=== PATIENT | male | born 1960 | race Caucasian/White ===

== ENCOUNTER 2022-08-01 06:41 | Observation (INO) ==
[2022-08-01] MEDS ORDERED: LIDOCAINE 1% LOCAL 20 ML VIAL ONE (07:07)
--- NOTE | 2022-08-01 08:10 | Pre Anesthesia Assessment ---
Date of Service August 01, 2022 Pre Sedation Assessment Vital Signs Temp Pulse Resp BP Pulse Ox O2 Del Method 08/01/22 07:03 98.1 F 86 16 199/99 H 95 Room Air Cardiovascular RRR, no murmur, no edema Respiratory normal respiratory effort, lungs clear to auscultation Pre-Sedation Airway Assessment Smoking Status: Never smoker Hx Sleep Apnea: No Short, Thick Neck: No Thyromental Distance: > or= 3.5 Finger Breadths Oral Cavity: + WNL Mallampati Class: II ASA: ASA3 NPO Status Date of Last Intake of Fluids: 08/01/22 Time of Last Intake of Fluids: 05:00 Last Oral Intake of Fluids Comment: with pills Date of Last Intake of Solid Food: 07/31/22 Time of Last Intake of Solid Foods: 21:00 Procedure Planning Contraindications for Sedation: none Current Medications Reviewed: Yes Notes The planned sedation has been discussed with the patient. Informed Consent was obtained. I have identified the patient, determined the appropriateness of sedation and have assessed the patient immediately prior to the procedure. All medicine(s) and interventions are by my order.
--- NOTE | 2022-08-01 08:10 | History & Physical Bridge Note ---
Date of Service August 01, 2022 History & Physical Bridge Note I have examined the patient, reviewed the History & Physical and in the interval since the performance of the History & Physical I have noted the following changes of clinical significance: no changes noted
[2022-08-01] MEDS ORDERED: MIDAZOLAM HCL 1 MG/ML 2ML VIAL ONE ×3 (08:20→09:09)
[2022-08-01] MEDS ORDERED: HEPARIN (PORCINE) 1000 UNIT/ML 10 ML (CATH LAB USE ONLY) ONE ×2 (08:20→09:44)
[2022-08-01] MEDS ORDERED: fentaNYL citrate PF 100 MCG/2 ML VIAL ONE ×2 (08:21→09:07)
[2022-08-01] MEDS ORDERED: niCARdipine HCL INJ 2.5 MG/ML 10 ML AMP ONE (08:21)
[2022-08-01] MEDS ORDERED: NITROGLYCERIN/D5W 100MCG/ML 20ML SYR ONE (08:22)
[2022-08-01] MEDS ORDERED: PRASugrel TAB 10 MG TAB PO ONE (10:41)
--- NOTE | 2022-08-01 10:59 | Post Anesthesia Assessment ---
Date of Service August 01, 2022 Post Sedation Assessment Vital Signs Temp Pulse Resp BP Pulse Ox O2 Del Method 08/01/22 07:03 98.1 F 86 16 199/99 H 95 Room Air Recovery Score Activity: Moves 4 extremities Respiration: Deep Breath/Cough Circulation: +/-20% PreAnes Value Consciousness: Fully Awake Oxygen Saturation: O2 needed for >90% Discharge Sedation Level of Care: Fast Track Phase II Post Sedation Plan On clinical assessment, the patient appears to have tolerated the sedation without complications. Patient is recovering as anticipated. Patient will continue to be monitored by nursing and may be discharged when sedation discharge criteria are met per below protocol. Upon Completions of procedure up to 15 minutes continue every 5 minute vital signs and the P.A.R. score; then discharge to a Phase I or Fast Track to Phase II per the following guidelines: * Discharge Patient to appropriate Phase II area if PAR is 8 or greater or return to pre- procedure baseline. The post - procedure orders will be as directed. * If PAR score is less than 8 or not return to pre-procedure baseline then patient will follow Phase I monitoring till PAR is reached for Phase II. The Phase I may be done in procedure room or may call to secure a Phase I area. * If naloxone or flumazenil are used for reversal, hold in Phase I for continued monitoring from when last reversal dose was given for a minimum of 60 minutes or longer pending the nurse and/or physician discretion of patient condition before discharge to Phase II. Please call the Sedation Physician to re-evaluate and complete post-note for discharge to Phase II area. Do NOT discharge from procedure sedation or Phase 1 until post- sedation evaluation note is complete by procedure /sedation MD Sedation Discharge Instructions to be given to the patient at discharge to home.
--- NOTE | 2022-08-01 11:01 | Cardiac Catheterization ---
[facility] Data: Farm [employer] Cardiac Status Clinical evaluation leading to the procedure CAD Presenation: Positive Stress Test Anginal Classification: CCS III Diagnostic Physicians Name: Lenard Aguilar MD Closure Device Recommendations: PCI without planned CABG Cardiac Cath Procedure Full Procedure Date August 01, 2022 Pre-Procedure Diagnosis Pre-Procedure Diagnosis: Positive Stress Test AUC Score AUC Score: 8 Post-Procedure Diagnosis Post-Procedure Diagnosis: Severe CAD and Successful PCI Procedure(s) Performed Procedure(s) Performed: Coronary Angiography, Left Heart Cath and Drug Eluting Stent Brush Loader And Handle Attacher Lenard Aguilar MD Professor Of Special Education(s) [place] Estimated Blood Loss Estimated Blood Loss: 20 Medication(s) Medication(s): Fentanyl, Nicardipine, Nitroglycerin and Versed Medication(s): Prasugrel Summary of Findings Indication: High risk/abnormal stress test, accelerating angina Access: 6 Fr right radial artery (tortuosity in radial artery in the upper forearm navigated with V18 wire and 4 Fr catheter). Catheters: JR4, JL 3.5, EBU 3.5 guide, pigtail Findings: LM -normal caliber, no significant disease LAD -medium caliber, mildly calcified, 90% proximal stenosis at takeoff of large D1, mid segment with luminal regularities, distal vessel wraps around apex. D1 with ostial 95% stenosis, 30% mid segment stenosis. Circumflex -medium caliber, high OM1 large caliber vessel with 20 to 30% mid segment disease. Small AV groove circumflex without disease. RCA -dominant, large caliber, mild diffuse mid segment disease up to 30%, distal vessel and RPDA, PLB without significant disease. LVEDP -21 -- PCI -- Antithrombotic therapy: Heparin, prasugrel Procedure: Left main cannulated with EBU 3.5 guide Pre-procedure flow ALEX 2-3 BMW wire passed across ostial diagonal lesion into distal vessel [place] wire placed into distal LAD Mid LAD lesion predilated with 2.5 compliant balloon Ostial/proximal diagonal lesion predilated with 2.5 compliant balloon [place] IVUS catheter placed into mid LAD. Pullback revealed diffuse disease with circumferential calcium extending back across takeoff of diagonal. Minimal disease in left main. IVUS pullback and diagonal revealed mid segment moderate disease with severe ostial disease extending into LAD Ostial/proximal diagonal stented with 2.75 x 12 mm Xience BRYANNA with proximal edge of stent protruding into LAD Kissing balloon inflation with 2.75 stent balloon in diagonal, 2.5 balloon in LAD Proximal to mid LAD stented with 3.0 x 18 Xience drug-eluting stent Stent post-dilated with 3.5 noncompliant balloon Diagonal rewired with whisper wire. Attempt made to further dilate stent struts with 2.0 and 1.5 balloon but unable to pass across stent struts. IC vasodilators administered for spasm Post procedure ALEX 3 flow, stents well expanded with minimal residual stenosis and no apparent cardiac complications. Arterial Closure: TR band Summary: 1. Severe single vessel coronary artery disease -90% proximal LAD at bifurcation of large D1. D1 with 95% ostial stenosis. 2. Borderline intracardiac filling pressure 3. 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 Any exceptions are noted below. [facility] Card Cath Procedure Codes Cardiac Catheterization Procedure 1: Cardiovascular Cath Procedures: 34478 Coronaries and LHC (+/-LV) Therapeutic Services & Ancillary Procedure 1: Cardiovascular Tx and Anc Procedures: 28057 IV Ultrasound (Coronary or Graft) Procedure 2: Cardiovascular Tx and Anc Procedures: 17740 IV Ultrasound Ea addl vessel Moderate Sedation Procedure 1: Sedation/Anesthesia: 28343 Mod Sedation by the same physician;Init15 Min Child Age 5 & Up Procedure 2: Sedation/Anesthesia: 41245 Mod Sedation by the same physician; Ea [id number] Minutes Stenting Procedure 1: Cardiovascular Stent Procedures: 28470 Perc transcatheter placement of intracoronary stent(s), with ang PG Care Time/CCT Total # of Minutes Spent Total Time Spent with Patient: Total time spent is greater than 50% in coordination of care (as documented) at patient's floor/unit and/or counseling patient:
--- NOTE | 2022-08-01 13:18 | Electrocardiogram Report ---
Test Reason : Blood Pressure : / mmHG Vent. Rate : 061 BPM Atrial Rate : 061 BPM P-R Int : 238 ms QRS Dur : 086 ms QT Int : 422 ms P-R-T Axes : 045 -15 026 degrees QTc Int : 424 ms Sinus rhythm with 1st degree A-V block Poor R wave progression, consider anterior [place] vs. lead placement vs. LVH Abnormal ECG No previous ECGs available Confirmed by Gage Leyva ([id number]) on 08/01/2022 1:18:12 PM Referred By: Jeff Spear Confirmed By:Gage Leyva
--- NOTE | 2022-08-01 15:48 | Electrocardiogram Report ---
Test Reason : Blood Pressure : / mmHG Vent. Rate : 065 BPM Atrial Rate : 065 BPM P-R Int : 228 ms QRS Dur : 084 ms QT Int : 380 ms P-R-T Axes : 050 -21 018 degrees QTc Int : 395 ms Sinus rhythm with 1st degree A-V block Poor R wave progression, consider anterior [place] vs. lead placement vs. LVH Abnormal ECG When compared with ECG of 01-AUG-2022 11:07, No significant change was found Confirmed by Gage Leyva ([id number]) on 08/01/2022 3:48:11 PM Referred By: Jeff Spear Confirmed By:Gage Leyva
--- NOTE | 2022-08-01 15:53 | Electrocardiogram Report ---
Test Reason : Blood Pressure : / mmHG Vent. Rate : 056 BPM Atrial Rate : 056 BPM P-R Int : 236 ms QRS Dur : 072 ms QT Int : 410 ms P-R-T Axes : 044 -05 047 degrees QTc Int : 395 ms Sinus bradycardia with 1st degree A-V block Anterior infarct (cited on or before 01-AUG-2022) Abnormal ECG When compared with ECG of 01-AUG-2022 13:46, (unconfirmed) No significant change was found Confirmed by Gage Leyva ([id number]) on 08/01/2022 3:52:45 PM Referred By: Jeff Spear Confirmed By:Gage Leyva
[2022-08-01] MEDS ORDERED: ONDANSETRON INJ 2 MG/ML 2 ML VIAL IV PRN (18:09)
[2022-08-01] MEDS ORDERED: ACETAMINOPHEN 325 MG TAB PO PRN (18:09)
[2022-08-01] MEDS ORDERED: NITROGLYCERIN SL 0.4 MG/TAB TAB SL PRN (18:09)
[2022-08-02] MEDS ORDERED: SIMVASTATIN 40 MG TAB PO SCH (09:00)
[2022-08-02] MEDS ORDERED: PRASugrel TAB 10 MG TAB PO SCH (09:00)
[2022-08-02] MEDS ORDERED: amLODIPine BESYLATE 5 MG TAB PO SCH (09:00)
[2022-08-02] MEDS ORDERED: ASPIRIN 81 MG ECTAB PO SCH (09:00)
[2022-08-02] MEDS ORDERED: hydroCHLOROthiazide 25 MG TAB PO SCH (09:00)
--- NOTE | 2022-08-03 13:57 | Discharge Summary ---
Date of Service August 03, 2022 Admission HPI Per Admitting Provider 62-year-old man with a history of hypertension, dyslipidemia who was previously seen by Dr. Spear for accelerating angina. Exercise stress echo was abnormal. Presented for further evaluation with cardiac catheterization. Specialty Data Cardiology 1. Severe single vessel coronary artery disease -90% proximal LAD at bifurcation of large D1. D1 with 95% ostial stenosis. 2. Borderline intracardiac filling pressure 3. Successful PCI of proximal to mid LAD/D1 bifurcation with 2 drug-eluting stents (TAP 3.0 x 18 Xience LAD; 2.75 x 12 Xience diagonal) Discharge Data Procedures Performed Operation Date: 08/01/22 08:00 Actual Procedures p Cineradiography w/Routine Exam - Sam Aguilar MD p Cath, Left with Cors and Vent - Sam Aguilar MD s Drug Eluting Stent SGl Vessel - Sam Aguilar MD s IVUS Coronary Single Vessel - Sam Aguilar MD Hospital Course (1) CAD (coronary artery disease): Plan Patient underwent cardiac catheterization via right radial artery and was found to have a severe 90+% stenosis involving his proximal LAD and bifurcation with large D1. He underwent bifurcation stenting of LAD/D1 with 2 drug-eluting stents. Procedure was uncomplicated. Post procedure patient had orthostatic symptoms and was admitted for overnight observation. Overnight patient had no chest pain. He remained hemodynamically and electrically stable. On postprocedure day 1 was feeling well. No evidence of access site complications. Discharged on DAPT with aspirin, prasugrel. His prior metoprolol was discont inued. Continued on remainder of prior anti-hypertensives and statin. Follow-up with cardiology in 1 week. Discharge Instructions Home Medications amlodipine 10 mg tablet 10 mg PO DAILY 07/14/22 [History Confirmed 07/15/22] aspirin 81 mg tablet,delayed release (Adult Aspirin Regimen) 81 mg PO DAILY 07/14/22 [History Confirmed 07/15/22] clobetasol 0.05 % topical cream 1 applic topical DAILY 07/14/22 [History Confirmed 07/15/22] hydrochlorothiazide 25 mg tablet 25 mg PO DAILY 07/14/22 [History Confirmed 07/15/22] simvastatin 40 mg tablet 40 mg PO DAILY 07/14/22 [History Confirmed 07/15/22] nitroglycerin 0.4 mg sublingual tablet (Nitrostat) 0.4 mg sublingual PRN PRN chest pain #30 tabs 08/02/22 [Rx] prasugrel 10 mg tablet 10 mg PO QAM #30 tabs 08/02/22 [Rx] Coding Level of Care Code 00196 IN/OBS DISCH 30 MIN/LESS Diagnoses CAD (coronary artery disease) I25.10
== END 2022-08-02 10:53 | disposition home or self-care (01) ==
LOC: 2S 06:41 → CC 06:41
DX: E78.5 Hyperlipidemia, unspecified; Z79.82 Long term (current) use of aspirin; I25.10 Atherosclerotic heart disease of native coronary artery without angina pectoris; I10 Essential (primary) hypertension; Z79.899 Other long term (current) drug therapy; I71.21 Aneurysm of the ascending aorta, without rupture